=== PATIENT | male | born 1960 | race Caucasian/White ===

== ENCOUNTER 2020-01-22 14:12 | Outpatient (CLI) | payer OTHER, SELFPAY ==
[2020-01-27 17:37] LABS: PSA, Free 0.17 ng/mL; PSA, Total 0.5 ng/mL (<=4.0)
== END 2020-01-22 14:13 | disposition home or self-care (01) ==
PROVIDERS: PCP Family Medicine
DX: N40.0 Benign prostatic hyperplasia without lower urinary tract symptoms (principal)
CPT/HCPCS: 36415; 84153; 84154

== ENCOUNTER 2020-06-28 06:50 | Outpatient (CLI) | payer OTHER, SELFPAY ==
[2020-06-28 07:24] LABS: Cholesterol 102 mg/dL (0-200); HDL Direct 36 mg/dL; Triglycerides 90 mg/dL (<150)
[2020-06-28 07:34] LABS: LDL Cholesterol Direct 53 mg/dL
== END 2020-06-28 06:51 | disposition home or self-care (01) ==
PROVIDERS: PCP Family Medicine
DX: I25.10 Atherosclerotic heart disease of native coronary artery without angina pectoris (principal); E78.00 Pure hypercholesterolemia, unspecified
CPT/HCPCS: 36415; 80061

== ENCOUNTER 2021-11-05 07:03 | Outpatient (CLI) | payer OTHER, SELFPAY ==
[2021-11-05 08:12] LABS: Cholesterol 124 mg/dL (0-200); HDL Direct 35 mg/dL; Triglycerides 126 mg/dL (<150)
[2021-11-05 08:23] LABS: LDL Cholesterol Direct 64 mg/dL
== END 2021-11-05 07:04 | disposition home or self-care (01) ==
PROVIDERS: PCP Family Medicine
DX: E78.00 Pure hypercholesterolemia, unspecified (principal); I25.10 Atherosclerotic heart disease of native coronary artery without angina pectoris
CPT/HCPCS: 36415; 80061

== ENCOUNTER 2022-08-15 11:23 | Emergency (ER) | payer OTHER, SELFPAY ==
[2022-08-15 11:54] VITALS: BP 138/91; PULSE 102; RESP 16; TEMP 36.6; O2SAT 99
--- NOTE | 2022-08-15 12:20 | ED.EXTPRO ---
HPI - Extremity Problem General Chief complaint: Extremity Injury, Lower Stated complaint: left leg pain Time Seen by Provider: 08/15/22 12:20 Source: patient and RN notes reviewed Mode of arrival: ambulatory Limitations: no limitations History of Present Illness HPI Narrative: 62-year-old male presents concern for left lower leg pain. Reports 3 weeks ago he was at work when he stepped off a step ladder and felt a twinge in the front of his left lower leg. Reports a week or so later he was hiking walking down a hill when he felt a similar twinge. Reports this progressed into pain any time he puts pressure on it. He reports the pain is the front of the leg just above the ankle. He denies swelling, bruising, open skin. Reports pain is loss in the morning when he wakes up been progressive throughout the day MD Complaint: extremity pain Related Data Home Medications Medication Instructions Recorded Confirmed evolocumab 140 mg/mL subcutaneous 140 mg subcut [id number] 08/15/22 08/15/22 pen injector (Repatha SureClick) rosuvastatin 40 mg tablet 40 mg PO DAILY 08/15/22 08/15/22 ticagrelor 90 mg tablet (Brilinta) 90 mg PO DAILY 08/15/22 08/15/22 Allergies Allergy/AdvReac Type Severity Reaction Status Date / Time No Known Allergies Allergy Verified 08/15/22 12:29 Review of Systems Review of Systems: CONSTITUTIONAL: Denies malaise, chills, sweats, or fever. SKIN: Denies rash or itching, open skin, laceration, abrasion, redness, warmth, swelling. MUSCULOSKELETAL: Reports left lower leg pain NEUROLOGIC: Denies numbness, weakness All systems reviewed & are unremarkable except as noted in HPI and below PMFSH Family History Family History (Updated 07/24/13 @ 10:55 by DOCTOR UNKNOWN) Other Family history of elevated blood lipids Social History Social History Smoking status: Never smoker Alcohol intake: current Comments At time of signature, agree with nursing past medical, surgical, social and family history. There is no relevant family history pertinent to the presenting complaint Exam Narrative: GENERAL: Well-appearing, well-nourished, and in no acute distress. HEAD: Normocephalic, atraumatic. EYES: PERRLA, conjunctivae clear NECK: Supple. CHEST: Speaks in full sentences. No respiratory distress. HEART: Regular rate and rhythm. Normal and equal peripheral pulses. EXTREMITIES: Left ankle and foot have grossly normal strength and sensation, normal range of motion. No edema or ecchymosis. Normal sensation with sensitivity to light touch and pain. Anterior lower tenderness with slightly palpable knot. No open wounds, no skin tenting, no devitalized tissue or atrophy, no trophic changes, no obvious deformity, alignment normal, nearby joints and structures intact. Distal pulses palpable and equal bilaterally, skin warm, dry, pink. Capillary refill less than 3 seconds. SKIN: Warm, dry, no rash. NEURO: Alert and oriented x3. PSYCH: Normal mood and affect Course Course Emergency Course: Patient is aware of diagnosis, understands and agrees to treatment plan. Anticipatory guidance given. Patient agrees to follow-up as directed and is aware of reasons to seek care at the emergency department. Portions of this record may have been created with voice recognition software Level of Care: Express Care Visit Vital Signs Vital signs: Vital Signs Temperature 97.9 F 08/15/22 11:54 Pulse Rate 102 H 08/15/22 11:54 Respiratory Rate 16 08/15/22 11:54 Blood Pressure 138/91 H 08/15/22 11:54 Pulse Oximetry 99 08/15/22 11:54 Oxygen Delivery Room Air 08/15/22 11:54 Temperature 97.9 F 08/15/22 11:54 Pulse Rate 102 H 08/15/22 11:54 Respiratory Rate 16 08/15/22 11:54 Blood Pressure 138/91 H 08/15/22 11:54 Pulse Oximetry 99 08/15/22 11:54 Oxygen Delivery Room Air 08/15/22 11:54 Reviewed. MDM - Extremity (Nontraumatic) MDM Narrative Medical decision making narrative: Patients inj
== END 2022-08-15 12:38 | disposition home or self-care (01) ==
PROVIDERS: Emergency Provider Nurse Practitioner; PCP Family Medicine
DX: S89.92XA Unspecified injury of left lower leg, initial encounter (principal); X50.9XXA Other and unspecified overexertion or strenuous movements or postures, initial encounter; E78.00 Pure hypercholesterolemia, unspecified; Z95.5 Presence of coronary angioplasty implant and graft
CPT/HCPCS: 99213; G0463

== ENCOUNTER 2024-10-11 08:36 | Outpatient (CLI) | payer OTHER, SELFPAY ==
--- NOTE | 2024-10-11 | ECHO_ITS ---
Patient Info Name: Bethel Palomino Age: 64 years : 1960 Gender: Male Ht: 70 in Wt: 175 lbs BSA: 1.99 m2 HR: 58 bpm BP: 143 / 85 mmHg Technical Quality: Fair Exam Date: 10/11/2024 9:04 AM Exam Location: Echo Lab Patient Status: Outpatient Admit Date: 10/11/2024 Staff Ordering Physician: SHAHRIARCARIDAD MD Art Glass Setter: Beatriz Lott RDCS Attending Provider: SHAHRIARCARIDAD MD Referring Physician: EMA WATTERS; Exam Type: CA echo doppler color flow Study Info Indications - CORONARY ARTERIOSCLEROSIS IN [place] ARTERY Complete two-dimensional, color flow and Doppler transthoracic echocardiogram is performed. Summary 1. Complete two-dimensional, color flow and Doppler transthoracic echocardiogram is performed. 2. Left ventricular chamber dimension is normal. 3. Left ventricular systolic function is normal, estimated at 60-65%. 4. The left ventricular diastolic function is grade I diastolic dysfunction. 5. E/e' 5 is not elevated. 6. Left atrial chamber dimension is moderately enlarged. 7. There is mild aortic valve sclerosis. 8. There is trace mitral valve regurgitation. 9. There is trace pulmonic regurgitation. Left Ventricle E/e' 5 is not elevated. Left ventricular chamber dimension is normal. Left ventricular systolic function is normal, estimated at 60-65%. The left ventricular diastolic function is grade I diastolic dysfunction. Right Ventricle Right ventricular chamber dimension is normal. Right ventricular systolic function is normal. Left Atria Left atrial chamber dimension is moderately enlarged. Right Atria Right atrial chamber dimension is normal. Aortic Valve The aortic valve is trileaflet. There is mild aortic valve sclerosis. There is no aortic valve stenosis. There is no aortic valve regurgitation. Pulmonic Valve There is trace pulmonic regurgitation. Mitral Valve There is no mitral valve stenosis. There is trace mitral valve regurgitation. Tricuspid Valve There is no tricuspid valve regurgitation. Pericardium/Pleural There is no pericardial effusion. Inferior Vena Cava Normal inferior vena cava with >50% collapse upon inspiration consistent with normal right atrial pressure, 5 mmHg. Aorta The aortic root size at the sinus of Valsalva is normal. Left Ventricular Outflow Tract Name Value Normal LVOT 2D LVOT Diameter 2.0 cm LVOT Doppler LVOT Peak Gradient 3 mmHg LVOT Mean Gradient 2 mmHg LVOT VTI 17 cm LVOT VTI/AV VTI Ratio 0.6 LVOT Stroke Volume 52 ml LVOT CO 2.9 l/min LVOT CI 1.4 l/min/m2 Pulmonic Valve Name Value Normal RVOT Doppler RVOT Peak Gradient 2 mmHg PV Doppler PV Peak Gradient 4 mmHg PV Regurgitation Doppler NJ Peak End Diastolic Velocity 98 cm/s Mitral Valve Name Value Normal MV Doppler MV Decel Nelson 361 cm/s2 MV PHT 42 ms MV Area (PHT) 5.2 cm2 4.0-5.0 MV Diastolic Function MV E Peak Velocity 52 cm/s MV A Peak Velocity 53 cm/s MV E/A 1.0 MV Decel Time 145 ms MV Annular TDI MV E/e' (Septal) 6.7 <=8.0 MV E/e' (Lateral) 4.6 <=8.0 MV E/e' (Average) 5.6 Tricuspid Valve Name Value Normal Estimated PAP/RSVP RA Pressure 5 mmHg <=5 Aorta Name Value Normal Ascending Aorta Ao Root Diameter (MM) 3.5 cm Ao Root Diam Index (MM) 1.8 cm/m2 Aortic Valve Name Value Normal AV Doppler AV Peak Velocity 130 cm/s AV Peak Gradient 7 mmHg AV Mean Gradient 4 mmHg AV VTI 28 cm AV Area (Cont Eq VTI) 1.9 cm2 >=3.0 AV Area (Cont Eq Samuel) 2.0 cm2 AV Regurgitation 2D LVOT Area 3.0 cm2 Ventricles Name Value Normal LV Dimensions 2D/MM IVS Diastolic Thickness (2D) 1.5 cm 0.6-1.0 LVID Diastole (2D) 4.7 cm 4.2-5.8 LVIW Diastolic Thickness (2D) 0.9 cm 0.6-1.0 LVID Systole (2D) 3.4 cm 2.5-4.0 LVOT Diameter 2.0 cm LV Mass (2D Cubed) 216.71 g 88.00-224.00 LV Mass Index (2D Cubed) 109 g/m2 49-115 Relative Wall Thickness (2D) 0.39 LV Fractional Shortening/Ejection Fraction 2D/MM LV Fractional Shortening (2D) 27 % 25-43 LV EF (2D Teicholz) 53 % 52-72 LV Diastolic Volume (4C MOD) 76 ml LV EF (4C MOD) 62 % LV Diastolic Volume (2C MOD) 76 ml LV EF (2C MOD) 60 % LV Diastolic Volume (BP MOD) 78 ml 62-150 LV Diastolic Volume Index (BP MOD) 39 ml/m2 34-74 LV Systolic Volume (BP MOD) 32 ml 21-61 LV Systolic Volume Index (BP MOD) 16 ml/m2 11-31 LV EF (BP MOD) 59 % 52-72 LV Diastolic Length (4C) 7.9 cm LV Systolic Length (4C) 6.7 cm LV Stroke Volume (4C MOD) 47 ml Atria Name Value Normal LA Dimensions LA Dimension (MM) 4.3 cm 3.0-4.1 LA Volume (4C A-L) 60 ml LA Volume (BP A-L) 60 ml RA Dimensions RA Area (4C) 17.8 cm2 <=18.0 Report Signatures
--- OUTSIDE RECORDS SUMMARY | 2024-10-11 09:02 | XMS_ITS | Referral Summary ---
Author Organization [facility] D Address [address] [place] [id number] Care Team Providers Care Jacquard Loom Heddles Tier Name Role Phone Feliberto Colbert MD Unavailable Joaquín Diaz Primary Care Provider [phone] Encounters Date Type Department Care Team Description 10/05/2024 11:00 AM DELIVERY ASSOCIATE Office Visit [facility] [address] [address] Joaquín Diaz PA Atypical mole (Primary Dx); Annual physical exam; Screen for colon cancer 09/26/2024 Telephone [facility] [address] [place] [address] [address] [place] [address] Feliberto Colbert MD 09/25/2024 9:30 AM DELIVERY ASSOCIATE Office Visit [facility] [address] [place] [address] [address] [place] [address] Feliberto Colbert MD Coronary arteriosclerosis in [place] artery (Primary Dx); Familial hypercholesterolemia from Last 3 Months Allergies No known active allergies Medications aspirin 81 mg enteric coated tablet Take 1 tablet (81 mg total) by mouth daily Active rosuvastatin (CRESTOR) 40 mg tablet Take 1 tablet (40 mg total) by mouth daily 90 tablet 3 03/07/2024 Active evolocumab (Repatha SureClick) 140 mg/mL pen injector Inject 1 mL (140 mg total) as directed every 14 (fourteen) days 6 mL 2 03/14/2024 Active Active Problems Problem Noted Date Diagnosed Date RBBB 11/27/2020 Hypercholesteremia 10/29/2017 Assessment & Plan (06/10/2023 3:32 PM CDT): Lipids are well controlled. Continue high-intensity statin therapy plus Repatha. Continue diet and exercise. Assessment & Plan (06/10/2022 3:35 PM CDT): Lipids are well controlled. Continue high-intensity statin therapy plus Repatha. Continue diet and exercise. Assessment & Plan (06/03/2021 9:20 AM CDT): Lipids are well controlled. Continue high-intensity statin therapy plus Repatha. Assessment & Plan (11/28/2020 12:20 PM CDT): Lipids are well controlled on high-intensity statin plus Repatha. Continue same therapy. Assessment & Plan (03/07/2020 2:03 PM CDT): Lipids are suboptimally controlled despite maximal dose Crestor, fenofibrate, and Zetia. As above, I recommended Repatha. Continue diet and exercise. Assessment & Plan (03/09/2019 2:12 PM CDT): Lipids are well controlled. Continue high-intensity statin therapy. Continue diet and exercise. Assessment & Plan (03/08/2018 12:57 PM CDT): Lipids are suboptimally controlled. I asked him to consider Repatha. Continue high-intensity statin therapy plus Zetia and fenofibrate. Coronary arteriosclerosis in [place] artery 01/27 Overview (12/17/2016): MARY NULL VSSL Assessment & Plan (06/10/2023 3:31 PM CDT): Stable, without angina. I made no change in his excellent medical regimen today. I asked him to follow up with me annually, or sooner if needed. I again advised him to diet and exercise regularly. Assessment & Plan (06/10/2022 3:37 PM CDT): Stable, without angina. I made no change in his excellent medical regimen today, except to stop Brilinta, now well over 1 year out from his PCI. He remains on low-dose aspirin daily. I asked him to follow up with me annually, or sooner if needed. I again advised him to continue to diet and exercise regularly. Assessment & Plan (06/03/2021 9:19 AM CDT): Stable, without angina. I made no change in his excellent medical regimen today. I asked him to follow up with me annually, or sooner if needed. I again advised him to continue to diet and exercise regularly. Assessment & Plan (11/28/2020 12:20 PM CDT): Stable status post recent stenting of the protected left main into the ungrafted circumflex for an acute coronary syndrome, without recurrence of angina. Left ventricular function is normal. I made no change in his excellent medical regimen today. I asked him to follow up with me in 6 months, or sooner if needed. I again advised him to continue to diet and exercise regularly. Assessment & Plan (03/07/2020 2:02 PM CDT): Stable, without angina. I made no change in his excellent medical regimen today, but I did recommend he start Repatha for his elevated lipids. I asked him to follow up with me annually, or sooner if needed. I again advised him to diet and exercise regularly. Assessment & Plan (03/09/2019 2:10 PM CDT): Stable, without angina. I made no change in his excellent medical regimen today. I asked him to follow up with me annually, or sooner if needed. I again advised him to diet and exercise regularly. Assessment & Plan (03/08/2018 12:53 PM CDT): Stable, without angina. I made no change in his excellent medical regimen today. I asked him to follow up with me annually, or sooner if needed. I again advised him to continue to diet and exercise regularly. Hyperlipidemia 08/25/2011 Familial hypercholesterolemia 08/12/2010 Resolved Problems Problem Noted Date Diagnosed Date Resolved Date ACS (acute coronary syndrome) (CMS/HCC) 11/20/2020 11/27/2020 Chest pain 06/09/2023 Immunizations Name Administration Dates Next Due Influenza, Unspecified 06/13/2020 Social History Tobacco Use Types Packs/Day Years Used Date Smoking Tobacco: Never Smokeless Tobacco: Never Tobacco Cessation:Counseling Given: Not Answered Alcohol Use Standard Drinks/Week Comments Yes 0 (1 standard drink = 0.6 oz pur e alcohol) AUDIT-C Answer Date Recorded Q1: How often do you have a drink containing alc ohol? Monthly or less 10/05/2024 Q2: How many drinks containi ng alcohol do you have on a typical day when you are drinking? 1 or 2 10/05/2024 Q3: How often do you have si x or more drinks on one occasion? Never 10/05/2024 PHQ-2 Answer Date Recorded PHQ-2 Total Score (If total score is 3 or more points, staff should administer the PHQ-9) 0 10/05/2024 Sex and Gender Information Value Date Recorded Sex Assigned at Not on file Legal Sex Male 5:45 AM DELIVERY ASSOCIATE Gender Identity Not on file Sexual Orientation Not on file Last Filed Vital Signs Vital Sign Reading Time Taken Comments Blood Pressure 120/100 10/05/2024 11:01 AM DELIVERY ASSOCIATE Pulse 75 10/05/2024 11:01 AM DELIVERY ASSOCIATE Temperature 36.9 ??C (98.4 ??F) 11/21/2020 5:00 PM CS T Respiratory Rate 18 10/05/2024 11:0 1 AM DELIVERY ASSOCIATE Oxygen Saturation 98% 10/05/2024 11: 01 AM DELIVERY ASSOCIATE Inhaled Oxygen Concentration - - Weight 83.4 kg (183 lb 12.8 oz) 025 11:01 AM DELIVERY ASSOCIATE Height 177.8 cm (5' 10 ) 10/05/2024 11: 01 AM DELIVERY ASSOCIATE Body Mass Index 26.37 10/05/2024 11:01 AM DELIVERY ASSOCIATE Plan of Treatment Not on file Medical Devices Implanted Type Area Automotive Lot Attendant Device Identifier Shelf Expiration Date Model / Serial / Lot Adimab [id number] Synergy 3.5mm 16mm 144cm Radiopaque 1 Access Port Inflation Lumen - [id number] - [id number] Implanted:Qty: 1 on 11/21/2020 by Neal Flores MD at [facility] Stent N/A: Coronary [employer] Loni 08/20/2022 [id number] / [id number] / [id number] Description:Left main [employer] Loni [id number] Synergy 3mm 12mm 144cm Radiopaque 1 Access Port Inflation Lumen - [id number] - [id number] Implanted:Qty: 1 on 11/21/2020 by Neal Flores MD at [facility] Stent N/A: Coronary [employer] Loni 07/24/2022 [id number] / [id number] / [id number] Description:Ostial circumfle x Procedures Procedure Name Priority Date/Time Associated Diagnosis Comments POCT LIPID PANEL Routine 09/25/2024 9:57 AM DELIVERY ASSOCIATE Familial hypercholesterolemia from Last 3 Months Results * (ABNORMAL) POCT lipid panel (09/25/2024 9:57 AM DELIVERY ASSOCIATE) HDL, POC 38 > - 40 mg/dL Triglycerides, POC 171(A) < - 150 mg/dL LDL Cholesterol POC 48 < - 100 mg/dL Chol/HDL Ratio, POC 1.2 < - 5.0 Non-HDL Cholesterol, POC 82 < - 130 mg/dL Cholesterol Total, POC 120 < - 200 mg/dL Capillary blood 09/25/2024 9 :57 AM DELIVERY ASSOCIATE us Feliberto Colbert MD POINT OF CARE TEST ORDER EDIE Final Result from Last 3 Months Insurance [facility] Member Subscriber Plan / Payer (Ef fective 2012-Present) Name:REJI PEGUERO Relation to Subscriber:Self Name:Reji Peguero Payer ID:[id number] (NAIC) Type:[facility] HMO/PPO Address: [place] [id number] Advance Directives For more information, please contact: [phone] * Full Code (Latest Code Status on File) Date Activated Date Inactivated Comments 11/20/2020 8:15 AM 11/22/2020 2:53 AM Care Teams Jacquard Loom Heddles Tier Relationship Specialty Start Date End Date Joaquín Diaz PA [address] [facility] [address] [place] [address] PCP - General Family Medicine 10/05/24 Feliberto Colbert MD [address] [facility] [address] [place] [address] Consulting Physician Cardiology 10/05/24
--- OUTSIDE RECORDS SUMMARY | 2024-10-11 09:02 | XMS_ITS | Clinical Summary ---
Author Organization [facility] D Address [address] [place] [address] Care Team Providers Care Credit Union Field Examiner Name Role Phone Feliberto Colbert MD Unavailable Joaquín Diaz Primary Care Provider [phone] Allergies No known active allergies Medications aspirin [...] plus Zetia and fenofibrate. Coronary arteriosclerosis in [place] artery 01/27 Overview (12/17/2016): MEIRESTEE ATHJORDYN NULL VSSL Assessment & Plan (06/10/2023 3:31 [...] syndrome) (CMS/HCC) 11/20/2020 11/27/2020 Chest pain 06/09/2023 Encounters Date Type Department Care Team Description 10/05/2024 11:00 AM MERCHANDISE EXECUTIVE Office Visit [facility] [address] [facility] [address] [place] [phone] Joaquín Diaz PA Atypical mole (Primary Dx); Annual physical exam; Screen for colon cancer 09/26/2024 Telephone [facility] [address] [facility] [address] [place] [address] Feliberto Colbert MD 09/25/2024 9:30 AM MERCHANDISE EXECUTIVE Office Visit [facility] [address] [facility] [address] [place] [address] Feliberto Colbert MD Coronary arteriosclerosis in [place] artery (Primary Dx); Familial hypercholesterolemia from Last 3 Months Immunizations Name Administration Dates Next Due Influenza, Unspecified 06/13/2020 Surgical History Surgery Date Site/Laterality Comments CORONARY ARTERY BYPASS GRAFT Coronary Artery Bypass Graft Medical History Medical History Date Comments Hyperlipemia Coronary artery disease Family History Medical History Relation Name Comments Hyperlipidemia Brother 1 Coronary artery disease Father Heart attack Father Hyperlipidemia Father Bone cancer Mother Hyperlipidemia Sister 1 Hyperlipidemia Sister 2 Relation Name Status Comments Brother 1 Alive Brother 2 Alive Brother 3 Alive Father Mother Alive Sister 1 Alive Sister 2 Alive Social History Tobacco Use Types Packs/Day Years [...] on file Legal Sex Male 5:45 AM MERCHANDISE EXECUTIVE Gender Identity Not on file Sexual Orientation Not on file Obstetrics History Last Filed Vital Signs Vital Sign Reading Time Taken Comments Blood Pressure 120/100 10/05/2024 11:01 AM MERCHANDISE EXECUTIVE Pulse 75 10/05/2024 11:01 AM MERCHANDISE EXECUTIVE Temperature 36.9 ??C (98.4 ??F) 11/21/2020 5:00 PM CS T Respiratory Rate 18 10/05/2024 11:0 1 AM MERCHANDISE EXECUTIVE Oxygen Saturation 98% 10/05/2024 11: 01 AM MERCHANDISE EXECUTIVE Inhaled Oxygen Concentration - - Weight 83.4 kg (183 lb 12.8 oz) 025 11:01 AM MERCHANDISE EXECUTIVE Height 177.8 cm (5' 10 ) 10/05/2024 11: 01 AM MERCHANDISE EXECUTIVE Body Mass Index 26.37 10/05/2024 11:01 AM MERCHANDISE EXECUTIVE Plan of Treatment Health Maintenance Due Date Last Done Comments Colon Cancer Screening-Colonoscopy 1960 Hepatitis C Screening 1960 Prostate Cancer Screening-PSA 1960 DTaP/Tdap/Td Vaccine (1 - Tdap) 1973 Hepatitis B Screening 02/18/1980 Regular Well Visit/Exam 18-64 02/18/1980 Zoster Vaccine (1 of 2) 02/18/2012 Influenza Vaccine (#1) 2024 06/13/2020 Covid-19 Vaccine (3 - 2023-2 5 season) 2025 02/20/2022, 12/18/2020 Postponed from 05/14/2024 (Patient declined, but will receive in the future) Depression Screening 10/05/2025 10/05/2024 Pneumococcal vaccine <65 Aged Out No longer eligible based on patient's age to complete this topic Medical Devices Implanted Type Area Potato Spotter Device Identifier Shelf Expiration Date Model / Serial / Lot [employer] Loni [id number] Synergy 3.5mm 16mm 144cm Radiopaque 1 Access Port Inflation Lumen - [id number] - [id number] Implanted:Qty: 1 on 11/21/2020 by Neal Flores MD at [facility] Stent N/A: Coronary [employer] Loni 08/20/2022 [id number] / [id number] / [id number] Description:Left main [employer] [id number] Synergy 3mm 12mm 144cm Radiopaque 1 Access Port Inflation Lumen - [id number] - [id number] Implanted:Qty: 1 on 11/21/2020 by Neal Flores MD at [facility] Stent N/A: Coronary [employer] Loni 07/24/2022 [id number] / [id number] / [id number] Description:Ostial circumfle x Procedures Procedure Name Priority Date/Time Associated Diagnosis Comments POCT LIPID PANEL Routine 09/25/2024 9:57 AM MERCHANDISE EXECUTIVE Familial hypercholesterolemia from Last 3 Months Results * (ABNORMAL) POCT lipid panel (09/25/2024 9:57 AM MERCHANDISE EXECUTIVE) HDL, POC 38 > - 40 mg/dL Triglycerides, POC 171(A) < - 150 mg/dL LDL Cholesterol POC 48 < - 100 mg/dL Chol/HDL Ratio, POC 1.2 < - 5.0 Non-HDL Cholesterol, POC 82 < - 130 mg/dL Cholesterol Total, POC 120 < - 200 mg/dL Capillary blood 09/25/2024 9 :57 AM MERCHANDISE EXECUTIVE Feliberto Colbert MD POINT OF CARE TEST ORDER EDIE Final Result from Last 3 Months Insurance R [facility] Advance Directives For more information, please contact: [phone] * Full Code (Latest Code Status on File) Date Activated Date Inactivated Comments 11/20/2020 8:15 AM 11/22/2020 2:53 AM Care Teams Credit Union Field Examiner Relationship Specialty Start Date End Date Joaquín Diaz PA [address] [facility] [address] [place] [address] PCP - General Family Medicine 10/05/24 Feliberto Colbert MD [address] [facility] [address] [place] [address] Consulting Physician Cardiology 10/05/24
--- OUTSIDE RECORDS SUMMARY | 2024-10-11 09:02 | XMS_ITS | Clinical Summary ---
Author Organization [facility] Address [address] [place] [address]. [place] [address] [place] [address] Care Team Providers Care Faculty Neuropsychologist Name Role Phone Unavailable Primary Care Provider Unavailabl e Social History Tobacco Use Types Packs/Day Years Used Date Smoking Tobacco: Never Assessed Sex and Gender Information Value Date Recorded Sex Assigned at Not on file Legal Sex Male 6:30 PM CDT Gender Identity Not on file Sexual Orientation Not on file Plan of Treatment Health Maintenance Due Date Last Done Comments Colorectal Cancer Screening Colonoscopy (10 Years) 1960 Annual Physical 1965 Hepatitis C 02/18/1980 DTaP, Tdap and Td Vaccines ( 1 - Tdap) 1981 Zoster Vaccines (1 of 2) 02/18/2012 COVID-19 Vaccine ( - 2023-2 5 season) 2024 Influenza Adult (#1) 2024 RSV Immunization or 60+ Years (1 - 1-dose 75+ series) 2037 Meningococcal B Vaccine Aged Out No l onger eligible based on patient's age to complete this topic Meningococcal Vaccine Aged Out No krzysztof zaida eligible based on patient's age to complete this topic Pneumococcal Vaccine: Pediat rics (0 to 5 Years) and At-Risk Patients (6 to 64 Years) Aged Out No longer eligible b ased on patient's age to complete this topic RSV Immunizations Under 20 Months Aged Out No longer eligible based on patient's age to complete this topic
--- OUTSIDE RECORDS SUMMARY | 2024-10-11 09:02 | XMS_ITS | Clinical Summary ---
Author Organization Shanna Loaiza [facility] Address [address] [place] [phone] Care Team Providers Care Executive Sous Chef Name Role Phone Unavailable Primary Care Provider Unavailabl e Allergies No known active allergies Medications rosuvastatin (CRESTOR) 40 mg tablet TAKE 1 TABLET BY MOUTH EVERY DAY 0 Active evolocumab (Repatha SureClick) 140 mg/mL Pen Injector INJECT 1 ML SUBCUTANEOUSLY EVERY 14 DAYS 0 Active Active Problems No known active problems Social History Tobacco Use Types Packs/Day Years Used Date Smoking Tobacco: Never Smokeless Tobacco: Never Alcohol Use Standard Drinks/Week Comments Yes 0 (1 standard drink = 0.6 oz pur e alcohol) Sex and Gender Information Value Date Recorded Sex Assigned at Not on file Legal Sex Male 2:24 PM BRAND COORDINATOR Gender Identity Not on file Sexual Orientation Not on file Last Filed Vital Signs Vital Sign Reading Time Taken Comments Blood Pressure 147/93 09/29/2020 2:35 PM BRAND COORDINATOR Pulse 74 09/29/2020 2:35 PM BRAND COORDINATOR Temperature 36.7 ??C (98.1 ??F) 09/29/2020 2:35 PM CS T Respiratory Rate 18 09/29/2020 2:35 PM BRAND COORDINATOR Oxygen Saturation 98% 09/29/2020 2:35 PM BRAND COORDINATOR Inhaled Oxygen Concentration - - Weight 79.4 kg (175 lb) 09/29/2020 2:35 PM BRAND COORDINATOR Height 177.8 cm (5' 10 ) 09/29/2020 2:35 PM BRAND COORDINATOR Body Mass Index 25.11 09/29/2020 2:35 PM BRAND COORDINATOR Plan of Treatment Health Maintenance Due Date Last Done Comments DTAP/TDAP/TD VACCINES (1 - Tdap) 1981 COLORECTAL SCREENING 2007 Colorectal Cancer Screening 2007 FIT-DNA Q 3 years 2007 FIT/FOBT Q 1 year 2007 Flex Sig/CT Colonography Q 5 years 2007 ZOSTER VACCINE (1 of 2) 02/18/2012 INFLUENZA VACCINE (#1) 2024 RSV VACCINE (60+ or ) (1 - 1-dose 75+ series) 2037 Insurance CHOICE
== END 2024-10-11 08:37 | disposition home or self-care (01) ==
DX: I25.10 Atherosclerotic heart disease of native coronary artery without angina pectoris (principal); I51.89 Other ill-defined heart diseases; I51.7 Cardiomegaly; I35.8 Other nonrheumatic aortic valve disorders
CPT/HCPCS: 93306

== ENCOUNTER 2024-10-31 07:10 | Outpatient (CLI) | payer OTHER, SELFPAY ==
--- OUTSIDE RECORDS SUMMARY | 2024-10-31 07:15 | XMS_ITS | Clinical Summary ---
Author Organization [facility] Address [facility] [place] [address] Care Team Providers Care Rn Document Improvement Name Role Phone Unavailable Primary Care Provider [...] Vaccines (1 of 2) 02/18/2012 COVID-19 Vaccine (2023-2 5 season) 2024 Influenza Adult (#1) 2024 [...]
--- OUTSIDE RECORDS SUMMARY | 2024-10-31 07:15 | XMS_ITS | Referral Summary ---
Author Organization [facility] Address [address] [place] [phone] Care Team Providers Care Sustainability Director Name Role Phone Feliberto Colbert MD Unavailable Joaquín Diaz Primary Care Provider [phone] Encounters Date Type Department Care Team Description 10/05/2024 11:00 AM SWEDISH MASSEUSE Office Visit [facility] [address] [facility] [address] [place] [phone] Joaquín Diaz PA Atypical mole (Primary Dx); Annual physical exam; Screen for colon cancer 09/26/2024 Telephone [facility] [address] [place] [address] [address] [place] [address] Feliberto Colbert MD 09/25/2024 9:30 AM SWEDISH MASSEUSE Office Visit [facility] [address] [place] [address] [address] [place] [address] Feliberto Colbert MD Coronary arteriosclerosis in [place] artery (Primary Dx); Familial hypercholesterolemia from Last [...] plus Zetia and fenofibrate. Coronary arteriosclerosis in [place] artery 01/27 Overview (12/17/2016): MAYR NULL VSSL Assessment & Plan (06/10/2023 3:31 [...] (CMS/HCC) 11/20/2020 11/27/2020 Chest pain 06/09/2023 Immunizations Immunization Administration Dates Next Due Influenza, Unspecified 06/13/2020 [...] on file Legal Sex Male 5:45 AM SWEDISH MASSEUSE Gender Identity Not on file Sexual Orientation Not on file Last Filed Vital Signs Vital Sign Reading Time Taken Comments Blood Pressure 120/100 10/05/2024 11:01 AM SWEDISH MASSEUSE Pulse 75 10/05/2024 11:01 AM SWEDISH MASSEUSE Temperature 36.9 C (98.4 F) 11/21/2020 5:00 PM SWEDISH MASSEUSE Respiratory Rate 18 10/05/2024 11:0 1 AM SWEDISH MASSEUSE Oxygen Saturation 98% 10/05/2024 11: 01 AM SWEDISH MASSEUSE Inhaled Oxygen Concentration - - Weight 83.4 kg (183 lb 12.8 oz) 025 11:01 AM SWEDISH MASSEUSE Height 177.8 cm (5' 10 ) 10/05/2024 11: 01 AM SWEDISH MASSEUSE Body Mass Index 26.37 10/05/2024 11:01 AM SWEDISH MASSEUSE Plan of Treatment Not on file Medical Devices Implanted Type Area Engineer Automated Equipment Device Identifier Shelf Expiration Date Model / Serial / Lot hetras [id number] Synergy 3.5mm 16mm 144cm Radiopaque 1 Access Port Inflation Lumen - [id number] - [id number] Implanted:Qty: 1 on 11/21/2020 by Neal Flores MD at [facility] Stent N/A: Coronary [employer] Loni 08/20/2022 [id number] / [id number] / [id number] Description:Left main [employer] Loni [id number] Synergy 3mm 12mm 144cm Radiopaque 1 Access Port Inflation Lumen - [id number] - [id number] Implanted:Qty: 1 on 11/21/2020 by Neal Flores MD at [facility] Stent N/A: Coronary [employer] Loni 07/24/2022 [id number] / [id number] / [id number] Description:Ostial circumfle x Procedures Procedure Name Priority Date/Time Associated Diagnosis Comments STOOL DNA COLOGUARD Routine 10/21/2024 7:50 AM SWEDISH MASSEUSE Screen for colon cancer TRANSTHORACIC ECHO (TTE) COMPLETE W DOPPLER/CF Routine 10/11/2024 POCT LIPID PANEL Routine 09/25/2024 9:57 AM SWEDISH MASSEUSE Familial hypercholesterolemia from Last 3 Months Results * Stool DNA - Cologuard (10/21/2024 7:50 AM SWEDISH MASSEUSE) Stool DNA - Cologuard Negative Negative Imaging[facility] (CLIA #:[id number]) Comment: NEGATIVE TEST RESULT. A negative Cologuard result indicates a low likelihood that a colorectal cancer (CRC) or advanced adenoma (adenomatous polyps with more advanced pre-malignant features) is present. The chance that a person with a negative Cologuard test has a colorectal cancer is less than 1 in 1500 (negative predictive value >99.9%) or has an advanced adenoma is less than 5.3% (negative predictive value 94.7%). These data are based on a prospective cross-sectional study of 10,000 individuals at average risk for colorectal cancer who were screened with both Cologuard and colonoscopy. (Montez Miller al, N Engl J Med 2014;370(14):2394-3135) The normal value (reference range) for this assay is negative. COLOGUARD RE-SCREENING RECOMMENDATION: Periodic colorectal cancer screening is an important part of preventive healthcare for asymptomatic individuals at average risk for colorectal cancer. Following a negative Cologuard result, the [place] Cancer Society and U.S. Multi-Society Task Force screening guidelines recommend a Cologuard re-screening interval of 3 years. References: [place] Cancer Society Guideline for Colorectal Cancer Screening: https://www.cancer.org/cancer/cusuo-qzgjca-lihiax/xaqcjvaiz-bkjxdivtj-cpuwyev/ac s-rec ommendations.html.; Mike DK, Scott CR, Madhu RobertoK, Colorectal Cancer Screening: Recommendations for Physicians and Patients from the U.S. Multi-Society Task Force on Colorectal Cancer Screening , Am J Gastroenterology 2017; 112:9021-6487. TEST DESCRIPTION: Composite algorithmic analysis of stool DNA-biomarkers with hemoglobin immunoassay. Quantitative values of individual biomarkers are not reportable and are not associated with individual biomarker result reference ranges. Cologuard is intended for colorectal cancer screening of adults of either sex, 45 years or older, who are at average-risk for colorectal cancer (CRC). Cologuard has been approved for use by the U.S. FDA. The performance of Cologuard was established in a cross sectional study of average-risk adults aged 50-84. Cologuard performance in patients ages 45 to 49 years was estimated by sub-group analysis of near-age groups. Colonoscopies performed for a positive result may find as the most clinically significant lesion: colorectal cancer [4.0%], advanced adenoma (including sessile serrated polyps greater than or equal to 1cm diameter) [20%] or non- advanced adenoma [31%]; or no colorectal neoplasia [45%]. These estimates are derived from a prospective cross-sectional screening study of 10,000 individuals at average risk for colorectal cancer who were screened with both Cologuard and colonoscopy. (Montez Miller al, N Engl J Med 2014;370(14):8488-8417.) Cologuard may produce a false negative or false positive result (no colorectal cancer or precancerous polyp present at colonoscopy follow up). A negative Cologuard test result does not guarantee the absence of CRC or advanced adenoma (pre-cancer). The current Cologuard screening interval is every 3 years. ([place] Cancer Society and U.S. Multi-Society Task Force). Cologuard performance data in a 10,000 patient pivotal study using colonoscopy as the reference method can be accessed at the following location: www.GoPollGo.com/results. Additional description of the Cologuard test process, warnings and precautions can be found at www.cologuard.com. Stool 10/21/2024 7:50 AM SWEDISH MASSEUSE 10/23/2024 9:59 AM SWEDISH MASSEUSE Joaquín MATAMOROS LAB BODY FLUIDS AND STOOLS ORDERABLES Final Result [facility] (CLIA #:[id number]) [address] [place] [address] * Transthoracic Echo (TTE) Complete W Doppler/CF (10/11/2024) Anatomical Region Laterality Modality Ultrasound 10/11/2024 Feliberto Colbert MD CV ECHO PROCEDURES Edite d Result - Final * (ABNORMAL) POCT lipid panel (09/25/2024 9:57 AM SWEDISH MASSEUSE) HDL, POC 38 > - 40 mg/dL Triglycerides, POC 171(A) < - 150 mg/dL LDL Cholesterol POC 48 < - 100 mg/dL Chol/HDL Ratio, POC 1.2 < - 5.0 Non-HDL Cholesterol, POC 82 < - 130 mg/dL Cholesterol Total, POC 120 < - 200 mg/dL Capillary blood 09/25/2024 9 :57 AM SWEDISH MASSEUSE Feliberto Colbert MD POINT OF CARE TEST ORDER EDIE Final Result from Last 3 Months Insurance [facility] Address: [place] [id number] [facility] Address: [place] [address] [facility] Address: [place] [id number] Advance Directives For more information, please contact: [phone] * Full Code (Latest Code Status on File) Date Activated Date Inactivated Comments 11/20/2020 8:15 AM 11/22/2020 2:53 AM Care Teams Sustainability Director Relationship Specialty Start Date End Date Joaquín Diaz PA [address] [place] [address] PCP - General Family Medicine 10/05/24 Feliberto Colbert MD [address] [facility] [place] [address] [place] [address] Consulting Physician Cardiology 10/05/24
--- OUTSIDE RECORDS SUMMARY | 2024-10-31 07:15 | XMS_ITS | Clinical Summary ---
Author Organization Shanna Loaiza [facility] Address [address] [place] [phone] Care Team Providers Care Stain Wiper Name Role Phone Unavailable Primary Care Provider [...] on file Legal Sex Male 2:24 PM MARKETING STRATEGIST Gender Identity Not on file Sexual Orientation Not on file Last Filed Vital Signs Vital Sign Reading Time Taken Comments Blood Pressure 147/93 09/29/2020 2:35 PM MARKETING STRATEGIST Pulse 74 09/29/2020 2:35 PM MARKETING STRATEGIST Temperature 36.7 C (98.1 F) 09/29/2020 2:35 PM MARKETING STRATEGIST Respiratory Rate 18 09/29/2020 2:35 PM MARKETING STRATEGIST Oxygen Saturation 98% 09/29/2020 2:35 PM MARKETING STRATEGIST Inhaled Oxygen Concentration - - Weight 79.4 kg (175 lb) 09/29/2020 2:35 PM MARKETING STRATEGIST Height 177.8 cm (5' 10 ) 09/29/2020 2:35 PM MARKETING STRATEGIST Body Mass Index 25.11 09/29/2020 2:35 PM MARKETING STRATEGIST Plan of Treatment Health Maintenance Due Date [...]
--- OUTSIDE RECORDS SUMMARY | 2024-10-31 07:15 | XMS_ITS | Clinical Summary ---
Author Organization [facility] D Address [address] [place] [address] Care Team Providers Care Bird Cage Assembler Name Role Phone Feliberto Colbert MD Unavailable Joaquín Diaz Primary Care Provider [phone] Allergies No known active allergies Medications aspirin [...] plus Zetia and fenofibrate. Coronary arteriosclerosis in [place] artery 01/27 Overview (12/17/2016): MEIRESTEE ATHJORDYN NULL [...] Department Care Team Description 10/05/2024 11:00 AM STAINED GLASS INSTALLER Office Visit [facility] [address] [facility] [address] [place] [phone] Joaquín Diaz PA Atypical mole (Primary Dx); Annual physical exam; Screen for colon cancer 09/26/2024 Telephone [facility] [address] [facility] [address] [place] [address] Feliberto Clobert MD 09/25/2024 9:30 AM STAINED GLASS INSTALLER Office Visit [facility] [address] [facility] [address] [place] [address] Feliberto Colbert MD Coronary arteriosclerosis in [place] artery (Primary Dx); Familial hypercholesterolemia from Last 3 Months Immunizations Immunization Administration Dates Next Due Influenza, [...] on file Legal Sex Male 5:45 AM STAINED GLASS INSTALLER Gender Identity Not on file Sexual Orientation Not on file Obstetrics History Last Filed Vital Signs Vital Sign Reading Time Taken Comments Blood Pressure 120/100 10/05/2024 11:01 AM STAINED GLASS INSTALLER Pulse 75 10/05/2024 11:01 AM STAINED GLASS INSTALLER Temperature 36.9 C (98.4 F) 11/21/2020 5:00 PM STAINED GLASS INSTALLER Respiratory Rate 18 10/05/2024 11:0 1 AM STAINED GLASS INSTALLER Oxygen Saturation 98% 10/05/2024 11: 01 AM STAINED GLASS INSTALLER Inhaled Oxygen Concentration - - Weight 83.4 kg (183 lb 12.8 oz) 025 11:01 AM STAINED GLASS INSTALLER Height 177.8 cm (5' 10 ) 10/05/2024 11: 01 AM STAINED GLASS INSTALLER Body Mass Index 26.37 10/05/2024 11:01 AM STAINED GLASS INSTALLER Plan of Treatment Health Maintenance Due Date Last Done Comments Colon Cancer Screening-Colonoscopy 1962 Hepatitis C Screening 1960 Prostate Cancer Screening-PSA 1962 DTaP/Tdap/Td Vaccine (1 - Tdap) 1973 Hepatitis B Screening 02/18/1980 Regular Well Visit/Exam 18-64 02/18/1980 Zoster Vaccine (1 of 2) 02/18/2012 Influenza Vaccine (#1) 2024 06/13/2020 Covid-19 Vaccine (3 - 2023- season) 2025 02/20/2022, 12/18/2020 Postponed from 05/14/2024 (Patient declined, but will receive in the future) Depression Screening 10/05/2025 10/05/2024 Colon Cancer Screening-DNA Stool Discontinued 10/21/2024 Colon Cancer Screening-FIT Discontinued 10/21/2024 Pneumococcal vaccine <65 Aged Out No longer eligible based on patient's age to complete this topic Medical Devices Implanted Type Area Divisional Storekeeper Device Identifier Shelf Expiration Date Model / Serial / Lot [employer] Loni [id number] Synergy 3.5mm 16mm 144cm Radiopaque 1 Access Port Inflation Lumen - [id number] - [id number] Implanted:Qty: 1 on 11/21/2020 by Neal Flores MD at [facility] Stent N/A: Coronary [employer] Loni 08/20/2022 [id number] / [id number] / [id number] Description:Left main [employer] [id number] Synergy 3mm 12mm 144cm Radiopaque 1 Access Port Inflation Lumen - [id number] - [id number] Implanted:Qty: 1 on 11/21/2020 by Neal Flores MD at [facility] Stent N/A: Coronary [employer] Loni 07/24/2022 [id number] / [id number] / [id number] Description:Ostial circumfle x Procedures Procedure Name Priority Date/Time Associated Diagnosis Comments STOOL DNA COLOGUARD Routine 10/21/2024 7:50 AM STAINED GLASS INSTALLER Screen for colon cancer TRANSTHORACIC ECHO (TTE) COMPLETE W DOPPLER/CF Routine 10/11/2024 POCT LIPID PANEL Routine 09/25/2024 9:57 AM STAINED GLASS INSTALLER Familial hypercholesterolemia from Last 3 Months Results * Stool DNA - Cologuard (10/21/2024 7:50 AM STAINED GLASS INSTALLER) Stool DNA - Cologuard Negative Negative [facility] (CLIA #:[id number]) Comment: NEGATIVE TEST RESULT. A negative Cologuard [...] screened with both Cologuard and colonoscopy. (Montez Crandall et al, N Engl J Med 2014;370(14):6599-9808) The normal value (reference range) for this assay is negative. COLOGUARD RE-SCREENING RECOMMENDATION: Periodic colorectal cancer screening is an important part of preventive healthcare for asymptomatic individuals at average risk for colorectal cancer. Following a negative Cologuard result, the [place] Cancer Society and U.S. Multi-Society Task Force screening guidelines recommend a Cologuard re-screening interval of 3 years. References: [place] Cancer Society Guideline for Colorectal Cancer Screening: https://www.cancer.org/cancer/dyqyy-ehjsnh-yhtlsk/ooqyqgyih-pcbzcwjyk-bkcfqhv/ac s-rec ommendations.html.; Mike ROUSSEAU, Scott WORLEY, Madhu FISCHER, Colorectal Cancer Screening: Recommendations for Physicians and Patients from the U.S. Multi-Society Task Force on Colorectal Cancer Screening , Am J Gastroenterology 2017; 112:3237-6555. TEST DESCRIPTION: Composite algorithmic analysis of stool [...] (Montez Miller al, N Engl J Med 2014;370(14):0868-3258.) Cologuard may produce a false negative or false positive result (no colorectal cancer or precancerous polyp present at colonoscopy follow up). A negative Cologuard test result does not guarantee the absence of CRC or advanced adenoma (pre-cancer). The current Cologuard screening interval is every 3 years. ([place] Cancer Society and U.S. Multi-Society Task Force). Cologuard performance data in a 10,000 patient pivotal study using colonoscopy as the reference method can be accessed at the following location: www.Bird[employer] Solutions.Livescribe/results. Additional description of the Cologuard test process, warnings and precautions can be found at www.[email or web address]. Stool 10/21/2024 7:50 AM STAINED GLASS INSTALLER 10/23/2024 9:59 AM STAINED GLASS INSTALLER us Joaquín MATAMOROS LAB BODY FLUIDS AND STOOLS ORDERABLES Final Result [facility] (CLIA #:[id number]) [address] [place] [address] * Transthoracic Echo (TTE) Complete W Doppler/CF (10/11/2024) Anatomical Region Laterality Modality Ultrasound 10/11/2024 us Feliberto Colbert MD CV ECHO PROCEDURES Edite d Result - Final * (ABNORMAL) POCT lipid panel (09/25/2024 9:57 AM STAINED GLASS INSTALLER) HDL, POC 38 > - 40 mg/dL Triglycerides, POC 171(A) < - 150 mg/dL LDL Cholesterol POC 48 < - 100 mg/dL Chol/HDL Ratio, POC 1.2 < - 5.0 Non-HDL Cholesterol, POC 82 < - 130 mg/dL Cholesterol Total, POC 120 < - 200 mg/dL Capillary blood 09/25/2024 9 :57 AM STAINED GLASS INSTALLER Feliberto Colbert MD POINT OF CARE TEST ORDER EDIE Final Result from Last 3 Months Insurance [facility]/PPO Address: [facility] [address] [place] [address] [facility]/PPO Address: [place] [phone] [facility]/PP[facility] Address: [place] [address] Advance Directives For more information, please contact: [phone] * Full Code (Latest Code Status on File) Date Activated Date Inactivated Comments 11/20/2020 8:15 AM 11/22/2020 2:53 AM Care Teams Bird Cage Assembler Relationship Specialty Start Date End Date Joaquín Diaz PA [address] [place] [address] PCP - General Family Medicine 10/05/24 Feliberto Colbert MD [address] [facility] [address] [place] [address] Consulting Physician Cardiology 10/05/24
[2024-10-31 07:45] LABS: Alanine Aminotransferase 41 U/L (6-50); Albumin Level 4.3 g/dL (3.5-5.1); Alkaline Phosphatase 79 U/L (38-126); Anion Gap 11 mmol/L (4-12); Aspartate Amino Transferase 36 U/L (17-59); Bilirubin,Total 0.5 mg/dL (0.2-1.3); Blood Urea Nitrogen 12 mg/dL (9-20); Calcium 9.4 mg/dL (8.4-10.2); Carbon Dioxide 23 mmol/L (22-30); Chloride 104 mmol/L (98-107); Cholesterol 102 mg/dL (0-200); Estimated Glomerular Filt Rate > 60; Glucose 111 mg/dL (65-110); HDL Direct 30 mg/dL; Potassium 4.2 mmol/L (3.4-5.0); Sodium 138 mmol/L (137-145); Triglycerides 98 mg/dL (<150)
[2024-10-31 07:56] LABS: LDL Cholesterol Direct 53 mg/dL
[2024-10-31 08:14] LABS: Prostate Specific Antigen 1.2 ng/mL (< OR = 4.0)
== END 2024-10-31 07:11 | disposition home or self-care (01) ==
LOC: ANHLAB 07:12
DX: Z00.00 Encounter for general adult medical examination without abnormal findings (principal)
CPT/HCPCS: 36415; 80053; 80061; 84153

== ENCOUNTER 2024-11-18 08:18 | Outpatient (CLI) | payer OTHER, SELFPAY ==
--- OUTSIDE RECORDS SUMMARY | 2024-11-18 08:23 | XMS_ITS | Referral Summary ---
Author Organization [facility] D Address [address] [place] [address] Care Team Providers Care Rf Test Engineer Name Role Phone Feliberto Colbert MD Unavailable Joaquín Diaz Primary Care Provider [phone] Encounters Date Type Department Care Team Description 11/07/2024 Orders Only [facility] Medical [facility] Family Medicine [address] [facility] [address] [place] [phone] Joaquín Diaz PA 11/06/2024 4:00 PM YOUTH COUNSELOR Office Visit [facility] Family Medicine [address] [facility] [address] [place] [phone] Joaquín Diaz PA Annual physical exam (Primary Dx); Fatigue, unspecified type; Mixed hyperlipidemia 10/31/2024 Results Follow-Up [facility] Cardiology [facility] [facility] [address] [place] [address] Vicky Warren 10/05/2024 11:00 AM YOUTH COUNSELOR Office Visit [facility] Family Medicine [address] [facility] [address] [place] [phone] Joaquín Diaz PA Atypical mole (Primary Dx); Annual physical exam; Screen for colon cancer 09/26/2024 Telephone [facility] Cardiology [address] [facility] [address] [place] [address] Feliberto Colbert MD 09/25/2024 9:30 AM YOUTH COUNSELOR Office Visit [facility] Medical Group Cardiology [address] [facility] [address] [place] [address] Feliberto Colbert MD Coronary arteriosclerosis in [place] artery (Primary Dx); Familial hypercholesterolemia from Last 3 Months Allergies No known active allergies Medications aspirin 81 mg enteric coated tablet Take 1 tablet (81 mg total) by mouth daily Active rosuvastatin (CRESTOR) 40 mg tablet Take 1 tablet (40 mg total) by mouth daily 90 tablet 3 03/07/20 24 Active Repatha SureClick 140 mg/mL pen injector INJECT 1 PEN SUBCUTANEOUSLY EVERY 2 WEEKS DIRECTED 6 mL 3 11/02/19 25 Active evolocumab (Repatha SureClick) 140 mg/mL pen injector Inject 1 mL (140 mg total) as directed every 14 (fourteen) days 6 mL 2 03/14/20 24 2024 Discontinued Active Problems Problem Noted Date Diagnosed Date [...] plus Zetia and fenofibrate. Coronary arteriosclerosis in [place] artery 01/27 Overview (12/17/2016): CRNRY ATHRSCL CHAKA VSSL Assessment & Plan (06/10/2023 3:31 PM [...] Date Resolved Date ACS (acute coronary syndrome) 11/20/2020 11/27/2020 Chest pain 06/09/2023 Immunizations Immunization Administration Dates Next Due Influenza, Unspecified 11/06/2024(Deferred: Miranda ent Refused),06/13/2020 Social History Tobacco Use Types Packs/Day Years [...] points, staff should administer the PHQ-9) 0 11/06/2024 Sex and Gender Information Value Date Recorded Sex Assigned at Not on file Legal Sex Male 5:45 AM YOUTH COUNSELOR Gender Identity Not on file Sexual Orientation Not on file Last Filed Vital Signs Vital Sign Reading Time Taken Comments Blood Pressure 116/80 11/06/2024 4:06 PM YOUTH COUNSELOR Pulse 63 11/06/2024 4:06 PM YOUTH COUNSELOR Temperature 36.9 C (98.4 F) 11/21/2020 5:00 PM YOUTH COUNSELOR Respiratory Rate 18 11/06/2024 4:06 PM YOUTH COUNSELOR Oxygen Saturation 97% 11/06/2024 4:06 PM YOUTH COUNSELOR Inhaled Oxygen Concentration - - Weight 80.7 kg (178 lb) 11/06/2024 4:06 PM YOUTH COUNSELOR Height 177.8 cm (5' 10 ) 11/06/2024 4:06 PM YOUTH COUNSELOR Body Mass Index 25.54 11/06/2024 4:06 PM YOUTH COUNSELOR Plan of Treatment Not on file Medical Devices Implanted Type Area Wire Bender Hand Device Identifier Shelf Expiration Date Model / Serial / Lot [place] [employer] Loni [id number] Synergy 3.5mm 16mm 144cm Radiopaque 1 Access Port Inflation Lumen - [id number] - [id number] Implanted:Qty: 1 on 11/21/2020 by Neal Flores MD at [facility] Stent N/A: Coronary [employer] Loni 08/20/2022 [id number] / [id number] / [id number] Description:Left main [employer]oni [id number] Synergy 3mm 12mm 144cm Radiopaque 1 Access Port Inflation Lumen - [id number] - [id number] Implanted:Qty: 1 on 11/21/2020 by Neal Flores MD at [facility] Stent N/A: Coronary [employer] Loni 07/24/2022 [id number] / [id number] / [id number] Description:Ostial circumfle x Procedures Procedure Name Priority Date/Time Associated Diagnosis Comments LIPID PANEL Routine 10/31/2024 Annual physical exam COMPREHENSIVE METABOLIC PANEL Routine 10/31/2024 Annual physical exam PSA SCREEN Routine 10/31/2024 Annual physical exam STOOL DNA COLOGUARD Routine 10/21/2024 7:50 AM YOUTH COUNSELOR Screen for colon cancer TRANSTHORACIC ECHO (TTE) COMPLETE W DOPPLER/CF Routine 10/11/2024 POCT LIPID PANEL Routine 09/25/2024 9:57 AM YOUTH COUNSELOR Familial hypercholesterolemia from Last 3 Months Results * PSA screen (10/31/2024) SCRIBED PSA, Serum 1.2 4.0 EXTERNAL LAB Blood 10/31/2024 us Joaquín Gene [facility] LAB BLOOD ORDERABLES Final Result EXTERNAL LAB * Lipid panel (10/31/2024) Blood 10/31/2024 us Joaquín Gene [facility] LAB BLOOD ORDERABLES Final Result EXTERNAL LAB * Comprehensive metabolic panel (10/31/2024) Blood 10/31/2024 us Joaquín Gene [facility] LAB BLOOD ORDERABLES Final Result EXTERNAL LAB * Stool DNA - Cologuard (10/21/2024 7:50 AM YOUTH COUNSELOR) Pathologist [facility] Stool DNA - Cologuard Negative Negative [employer] (CLIA #:[id number]) Comment: NEGATIVE TEST RESULT. A negative Cologuard [...] (Montez Miller al, N Engl J Med 2014;370(14):6424-7505) The normal value (reference range) for this assay is negative. COLOGUARD RE-SCREENING RECOMMENDATION: Periodic colorectal cancer screening is an important part of preventive healthcare for asymptomatic individuals at average risk for colorectal cancer. Following a negative Cologuard result, the [place] Cancer Society and U.S. Multi-Society Task Force screening guidelines recommend a Cologuard re-screening interval of 3 years. References: [place] Cancer Society Guideline for Colorectal Cancer Screening: https://www.cancer.org/cancer/nusem-lhqnsk-cjkbij/wnckghdls-zuiojzlby-tlbbhqc/ac s-rec ommendations.html.; Mike DK, Scott WORLEY, Madhu RobertoK, Colorectal Cancer Screening: Recommendations for Physicians and Patients from the U.S. Multi-Society Task Force on Colorectal Cancer Screening , Am J Gastroenterology 2017; 112:8338-8123. TEST DESCRIPTION: Composite algorithmic analysis of stool [...] screened with both Cologuard and colonoscopy. (Montez Chambers, N Engl J Med 2014;370(14):3920-9245.) Cologuard may produce a false negative or false positive result (no colorectal cancer or precancerous polyp present at colonoscopy follow up). A negative Cologuard test result does not guarantee the absence of CRC or advanced adenoma (pre-cancer). The current Cologuard screening interval is every 3 years. ([place] Cancer Society and U.S. Multi-Society Task Force). Cologuard performance data in a 10,000 patient pivotal study using colonoscopy as the reference method can be accessed at the following location: www.[employer].E[employer]wave/results. Additional description of the Cologuard test process, warnings and precautions can be found at www.cologuard.com. Stool 10/21/2024 7:50 AM YOUTH COUNSELOR 10/23/2024 9:59 AM YOUTH COUNSELOR Joaquín [facility] LAB BODY FLUIDS AND STOOLS ORDERABLES Final Result [employer] (CLIA #:[id number]) [address] [place] [address] * Transthoracic Echo (TTE) Complete W Doppler/CF (10/11/2024) Anatomical Region Laterality Modality Ultrasound 10/11/2024 Feliberto Colbert MD CV ECHO PROCEDURES Edite d Result - Final * (ABNORMAL) POCT lipid panel (09/25/2024 9:57 AM YOUTH COUNSELOR) HDL, POC 38 > - 40 mg/dL Triglycerides, POC 171(A) < - 150 mg/dL LDL Cholesterol POC 48 < - 100 mg/dL Chol/HDL Ratio, POC 1.2 < - 5.0 Non-HDL Cholesterol, POC 82 < - 130 mg/dL Cholesterol Total, POC 120 < - 200 mg/dL Capillary blood 09/25/2024 9 :57 AM YOUTH COUNSELOR Feliberto Colbert MD POINT OF CARE TEST ORDER EDIE Final Result from Last 3 Months Insurance [id number] [place] [id number] [place] [address] Advance Directives For more information, please contact: [phone] * Full Code (Latest Code Status on File) Date Activated Date Inactivated Comments 11/20/2020 8:15 AM 11/22/2020 2:53 AM Care Teams Rf Test Engineer Relationship Specialty Start Date End Date Joaquín Diaz PA [address] [facility] [address] [place] [address] PCP - General Family Medicine 10/05/24 Feliberto Colbert MD [address] [facility] [address] [place] [address] Consulting Physician Cardiology 10/05/24
--- OUTSIDE RECORDS SUMMARY | 2024-11-18 08:23 | XMS_ITS | Clinical Summary ---
Author Organization [facility] Address [address] [place] [phone] Care Team Providers Care Esters And Emulsifiers Supervisor Name Role Phone Unavailable Primary Care Provider [...] on file Legal Sex Male 2:24 PM HIDE BUYER Gender Identity Not on file Sexual Orientation Not on file Last Filed Vital Signs Vital Sign Reading Time Taken Comments Blood Pressure 147/93 09/29/2020 2:35 PM HIDE BUYER Pulse 74 09/29/2020 2:35 PM HIDE BUYER Temperature 36.7 C (98.1 F) 09/29/2020 2:35 PM HIDE BUYER Respiratory Rate 18 09/29/2020 2:35 PM HIDE BUYER Oxygen Saturation 98% 09/29/2020 2:35 PM HIDE BUYER Inhaled Oxygen Concentration - - Weight 79.4 kg (175 lb) 09/29/2020 2:35 PM HIDE BUYER Height 177.8 cm (5' 10 ) 09/29/2020 2:35 PM HIDE BUYER Body Mass Index 25.11 09/29/2020 2:35 PM HIDE BUYER Plan of Treatment Health Maintenance Due Date [...]
--- OUTSIDE RECORDS SUMMARY | 2024-11-18 08:23 | XMS_ITS | Clinical Summary ---
Author Organization [facility] D Address [address] [place] [address] Care Team Providers Care Early Childhood Education Specialist Name Role Phone Felibreto Colbert MD Unavailable Joaquín Diaz Primary Care Provider [phone] Allergies No known active allergies Medications aspirin [...] plus Zetia and fenofibrate. Coronary arteriosclerosis in [place] artery 01/27 Overview (12/17/2016): MARY WADSWORTHAMANDEEP ULICES Assessment & Plan (06/10/2023 3:31 PM CDT): [...] coronary syndrome) 11/20/2020 11/27/2020 Chest pain 06/09/2023 Encounters Date Type Department Care Team Description 11/07/2024 Orders Only [facility] Family Medicine [address] [place] [phone] Joaquín Diaz PA 11/06/2024 4:00 PM STRAND GALVANIZER Office Visit [facility] Family Medicine [address] [facility] [address] [place] [address] Joaquín Diaz PA Annual physical exam (Primary Dx); Fatigue, unspecified type; Mixed hyperlipidemia 10/31/2024 Results Follow-Up [facility] Cardiology [address] [place] [address] [address] [phone] Vicky Warren 10/05/2024 11:00 AM STRAND GALVANIZER Office Visit [facility] Family Medicine [address] [facility] [address] [place] [address] Joaquín Diaz PA Atypical mole (Primary Dx); Annual physical exam; Screen for colon cancer 09/26/2024 Telephone [facility] Cardiology [address] [place] [phone] Feliberto Colbert MD 09/25/2024 9:30 AM STRAND GALVANIZER Office Visit [facility] Cardiology [address] [place] [phone] Feliberto Colbert MD Coronary arteriosclerosis in [place] artery (Primary Dx); Familial hypercholesterolemia from Last 3 Months Immunizations Immunization Administration Dates Next Due Influenza, Unspecified 11/06/2024(Deferred: Miranda ent Refused),06/13/2020 Surgical History Surgery Date Site/Laterality Comments CORONARY [...] on file Legal Sex Male 5:45 AM STRAND GALVANIZER Gender Identity Not on file Sexual Orientation Not on file Obstetrics History Last Filed Vital Signs Vital Sign Reading Time Taken Comments Blood Pressure 116/80 11/06/2024 4:06 PM STRAND GALVANIZER Pulse 63 11/06/2024 4:06 PM STRAND GALVANIZER Temperature 36.9 C (98.4 F) 11/21/2020 5:00 PM STRAND GALVANIZER Respiratory Rate 18 11/06/2024 4:06 PM STRAND GALVANIZER Oxygen Saturation 97% 11/06/2024 4:06 PM STRAND GALVANIZER Inhaled Oxygen Concentration - - Weight 80.7 kg (178 lb) 11/06/2024 4:06 PM STRAND GALVANIZER Height 177.8 cm (5' 10 ) 11/06/2024 4:06 PM STRAND GALVANIZER Body Mass Index 25.54 11/06/2024 4:06 PM STRAND GALVANIZER Plan of Treatment Health Maintenance Due Date Last Done Comments Hepatitis C Screening 1960 DTaP/Tdap/Td Vaccine (1 - Tdap) 1973 Hepatitis B Screening 02/18/1980 Zoster Vaccine (1 of 2) 02/18/2012 Influenza Vaccine (#1) 2024 06/13/2020 Covid-19 Vaccine ( - season) 2025 02/20/2022, 12/18/2020 Postponed from 05/14/2024 (Patient declined, but will receive in the future) Depression Screening 11/06/2025 11/06/2024, 10/05/2024 Regular Well Visit/Exam 18-64 11/06/2025 11/06/2024, 11/06/2024 Prostate Cancer Screening-PSA 10/31/2026 10/31/2024 Colon Cancer Screening-DNA Stool 10/21/2027 10/21/2024 Colon Cancer Screening-FIT Discontinued 10/21/2024 Pneumococcal vaccine <65 Aged Out No longer eligible based on patient's age to complete this topic Medical Devices Implanted Type Area Sports Psychologist Device Identifier Shelf Expiration Date Model / Serial / Lot [employer]oni [id number] Synergy 3.5mm 16mm 144cm Radiopaque 1 Access Port Inflation Lumen - [id number] - [id number] Implanted:Qty: 1 on 11/21/2020 by Neal Flores MD at [facility] Stent N/A: Coronary [employer]oni 08/20/2022 [id number] / [id number] / [id number] Description:Left main [employer] [id number] Synergy 3mm 12mm 144cm Radiopaque 1 Access Port Inflation Lumen - [id number] - [id number] Implanted:Qty: 1 on 11/21/2020 by Neal Flores MD at [facility] Stent N/A: Coronary [employer]oni 07/24/2022 [id number] / [id number] / [id number] Description:Ostial circumfle x Procedures Procedure Name Priority Date/Time Associated Diagnosis Comments LIPID PANEL Routine 10/31/2024 Annual physical exam COMPREHENSIVE METABOLIC PANEL Routine 10/31/2024 Annual physical exam PSA SCREEN Routine 10/31/2024 Annual physical exam STOOL DNA COLOGUARD Routine 10/21/2024 7:50 AM STRAND GALVANIZER Screen for colon cancer TRANSTHORACIC ECHO (TTE) COMPLETE W DOPPLER/CF Routine 10/11/2024 POCT LIPID PANEL Routine 09/25/2024 9:57 AM STRAND GALVANIZER Familial hypercholesterolemia from Last 3 Months Results * PSA screen (10/31/2024) SCRIBED PSA, Serum 1.2 4.0 EXTERNAL LAB Blood 10/31/2024 us Joaquín [facility] LAB BLOOD ORDERABLES Final Result EXTERNAL LAB * Lipid panel (10/31/2024) Blood 10/31/2024 Joaquín [place] Joe [facility] LAB BLOOD ORDERABLES Final Result EXTERNAL LAB * Comprehensive metabolic panel (10/31/2024) Blood 10/31/2024 Joaquín [place] Joe PA LAB BLOOD ORDERABLES Final Result Performing Organization Address [facility] Co de Phone Number EXTERNAL LAB * Stool DNA - Cologuard (10/21/2024 7:50 AM STRAND GALVANIZER) Stool DNA - Cologuard Negative Negative [employer] (CLIA #:[id number]) Comment: NEGATIVE TEST RESULT. A negative Cologuard [...] Crandall et al, N Engl J Med 2014;370(14):8170-9065) The normal value (reference range) for this assay is negative. COLOGUARD RE-SCREENING RECOMMENDATION: Periodic colorectal cancer screening is an important part of preventive healthcare for asymptomatic individuals at average risk for colorectal cancer. Following a negative Cologuard result, the [place] Cancer Society and U.S. Multi-Society Task Force screening guidelines recommend a Cologuard re-screening interval of 3 years. References: [place] Cancer Society Guideline for Colorectal Cancer Screening: https://www.cancer.org/cancer/cgxcg-fcpsae-hjtoqt/lasjqjtid-sfdtrxyqe-yefdwpl/ac s-rec ommendations.html.; Mike DK, Scott WORLEY, Madhu FISCHER, Colorectal Cancer Screening: Recommendations for Physicians and Patients from the U.S. Multi-Society Task Force on Colorectal Cancer Screening , Am J Gastroenterology 2017; 112:2750-8099. TEST DESCRIPTION: Composite algorithmic analysis of stool [...] screened with both Cologuard and colonoscopy. (Montez Thomas. et al, N Engl J Med 2014;370(14):0781-3966.) Cologuard may produce a false negative or false positive result (no colorectal cancer or precancerous polyp present at colonoscopy follow up). A negative Cologuard test result does not guarantee the absence of CRC or advanced adenoma (pre-cancer). The current Cologuard screening interval is every 3 years. ([place] Cancer Society and U.S. Multi-Society Task Force). Cologuard performance data in a 10,000 patient pivotal study using colonoscopy as the reference method can be accessed at the following location: www.[employer]/results. Additional description of the Cologuard test process, warnings and precautions can be found at www.SeeMeoguard.com. Stool 10/21/2024 7:50 AM STRAND GALVANIZER 10/23/2024 9:59 AM STRAND GALVANIZER us Joaquín MATAMOROS LAB BODY FLUIDS AND STOOLS ORDERABLES Final Result [facility] (CLIA #:[id number]) [address] [place] [address] * Transthoracic Echo (TTE) Complete W Doppler/CF (10/11/2024) Anatomical Region Laterality Modality Ultrasound 10/11/2024 Feliberto Colbert MD CV ECHO PROCEDURES Edite d Result - Final * (ABNORMAL) POCT lipid panel (09/25/2024 9:57 AM STRAND GALVANIZER) HDL, POC 38 > - 40 mg/dL Triglycerides, POC 171(A) < - 150 mg/dL LDL Cholesterol POC 48 < - 100 mg/dL Chol/HDL Ratio, POC 1.2 < - 5.0 Non-HDL Cholesterol, POC 82 < - 130 mg/dL Cholesterol Total, POC 120 < - 200 mg/dL Capillary blood 09/25/2024 9 :57 AM STRAND GALVANIZER Feliberto Colbert MD POINT OF CARE TEST ORDER EDIE Final Result from Last 3 Months Insurance [facility] H[facility]/PPO Address: [address] [id number] [place] [address] [facility] HMO/PPO Address: [place] [id number] [facility] HMO/PPO Address: [place] [address] Advance Directives For more information, please contact: [phone] * Full Code (Latest Code Status on File) Date Activated Date Inactivated Comments 11/20/2020 8:15 AM 11/22/2020 2:53 AM Care Teams Early Childhood Education Specialist Relationship Specialty Start Date End Date Joaquín Diaz PA [address] [address] PCP - General Family Medicine 10/05/24 Feliberto Colbert MD [address] [address] Consulting Physician Cardiology 10/05/24
--- OUTSIDE RECORDS SUMMARY | 2024-11-18 08:23 | XMS_ITS | Clinical Summary ---
Author Organization [facility] Address [facility] [place] [address] Care Team Providers Care Clearance Diver Name Role Phone Unavailable Primary Care Provider [...]
[2024-11-18 09:57] LABS: Basophils Absolute Auto 0.1 K/mm3 (0.0-0.1); Basophils Percent Auto 0.8 % (0.2-1.2); Eosinophils Absolute Auto 0.2 K/mm3 (0-0.3); Eosinophils Percent Auto 3.4 % (0-4.4); Hemoglobin 15.1 g/dL (14.0-18.0); Immature Granulocyte Absolute 0.02 K/mm3 (0.00-0.031); Immature Granulocyte Percent A 0.3 % (0-0.5); Lymphocytes Absolute Auto 2.35 K/mm3 (0.9-3.2); Lymphocytes Percent Auto 35.8 % (18.3-44.2); Mean Corpuscular HGB Conc 33.6 g/dl (32-36); Mean Corpuscular Hemoglobin 29.8 pg (26-34); Mean Corpuscular Volume 88.8 fl (80-100); Mean Platelet Volume 10.4 fl (7.4-10.4); Monocytes Absolute Auto 0.6 K/mm3 (0.1-0.6); Monocytes Percent Auto 8.5 % (2.6-8.5); Neutrophils Absolute Auto 3.4 K/mm3 (1.3-6.7); Neutrophils Percent Auto 51.2 % (45.5-73.1); Platelet Count Result 298 k/mm3 (150-375); Red Blood Count 5.07 M/mm3 (4.6-6.20); Red Cell Distribution Width 12.9 % (11.5-14.5); White Blood Count 6.6 K/mm3 (4.5-10.0)
[2024-11-18 10:52] LABS: Free T4 Free Thyroxine 0.77 ng/dL (0.78-2.19)
== END 2024-11-18 08:19 | disposition home or self-care (01) ==
DX: R53.83 Other fatigue (principal)
CPT/HCPCS: 36415; 82040; 84270; 84403; 84439; 84443; 85025